=== PATIENT | male | born 1960 | race Hispanic/Latino ===

== ENCOUNTER 2020-09-28 13:00 | Inpatient (IN) | payer OTHER ==
[~2020-09-28] VITALS: Ht 167.6 cm; Wt 133.8 kg
[2020-09-28 11:56] LABS: BASOPHILS % (AUTO) 0.7 % (0.0-5.0); EOSINOPHILS % (AUTO) 3.6 % (0.0-8.0); MEAN CORPUSCULAR HEMOGLOBIN 28.2 pg (27.0-33.0); MEAN CORPUSCULAR HGB CONC 32.7 g/dL (32.0-36.0); MEAN CORPUSCULAR VOLUME 86.3 fL (79-99); MONOCYTES % (AUTO) 5.6 % (3.0-13.0); NEUTROPHILS % (AUTO) 64.8 % (40.0-77.0); PLATELET COUNT (AUTO) 286 K/uL (130-400); RED BLOOD CELL COUNT(AUTO) 4.75 MIL/uL (4.50-6.20); RED CELL DISTRIBUTION WIDTH 12.3 % (11.0-15.5); WHITE BLOOD COUNT (AUTO) 9.1 K/uL (4.8-10.8)
[2020-09-28 11:58] LABS: APPEARANCE,URINE Cloudy (CLEAR); BILIRUBIN,URINE Negative (NEGATIVE); COLOR,URINE Yellow (YELLOW); GLUCOSE, URINE (UA) Negative (NEGATIVE); KETONES,URINE Trace mg/dL (NEGATIVE); LEUKOCYTE ESTERASE ,URINE Negative (NEGATIVE); NITRATE,URINE Negative (NEGATIVE); OCCULT BLOOD,URINE Negative (NEGATIVE); PROTEIN,URINE POS 1+ mg/dL (NEGATIVE); UROBILINOGEN,URINE 0.2 mg/dL (0.2-1.0)
[2020-09-28 12:09] LABS: POTASSIUM 4.4 mmol/L (3.5-5.1)
[2020-09-28 12:11] LABS: INR 0.98 (0.85-1.15); PROTHROMBIN TIME 10.6 SEC (9.6-11.6)
[2020-09-28 12:37] LABS: BACTERIA,URINE Rare /HPF (None Seen); RBC,URINE 0-1 /HPF (0-1); WBC,URINE 0-1 /HPF (0-1)
[2020-10-04 11:03] VITALS: BP 133/73
[2020-10-04] MEDS ORDERED: AEC81 PO (13:20)
[2020-10-04] MEDS ORDERED: LISI10TA7 PO (13:20)
[2020-10-04] MEDS ORDERED: LIRA0.6P SQ (13:20)
[2020-10-04] MEDS ORDERED: ERGO50CA PO (13:20)
[2020-10-04] MEDS ORDERED: BUPR-93 PO (13:20)
[2020-10-04] MEDS ORDERED: MAGN200T8 PO (13:20)
[2020-10-04] MEDS ORDERED: INSU100V12 SQ (13:20)
[2020-10-04] MEDS ORDERED: MULT-1203 PO (13:20)
[2020-10-04] MEDS ORDERED: INSU100I21 SQ (13:20)
[2020-10-04] MEDS ORDERED: SERT50TA12 PO (13:20)
[2020-10-04] MEDS ORDERED: SIMV-46 PO (13:20)
[2020-10-04] MEDS ORDERED: TRAZ-185 PO (13:20)
[2020-10-04] MEDS ORDERED: ALBU1.252 IH (13:20)
[2020-10-05] VITALS (33 sets, daily range): BP systolic 110–161; BP diastolic 59–87
[2020-10-05] MEDS ORDERED: CEFAZOLIN 3GM /D5W 100ML 100 ML IV SCH (06:00)
[2020-10-05] MEDS ORDERED: CEFAZOLIN SODIUM 1 GM VIAL ONE ×2 (07:49→07:58)
[2020-10-05] MEDS ORDERED: SODIUM CHLORIDE 0.9% 1000ML 1,000 ML IV ONE (07:49)
[2020-10-05] MEDS ORDERED: TRANEXAMIC ACID 1000MG/10ML ONE ×2 (07:58→13:06)
[2020-10-05] MEDS ORDERED: MAGN400T53 PO (08:25)
[2020-10-05] MEDS ORDERED: VITAMIN D2 PO (08:25)
[2020-10-05] MEDS ORDERED: TRAZ-187 PO (08:25)
[2020-10-05] MEDS ORDERED: SERT100T12 PO (08:25)
[2020-10-05] MEDS ORDERED: SIMV40TA59 PO (08:25)
[2020-10-05] MEDS ORDERED: ALBU8.5H8 IH (08:25)
[2020-10-05] MEDS ORDERED: SYMBICORT IH (08:27)
[2020-10-05] MEDS ORDERED: MIDAZOLAM HCL 1 MG/ML 2ML VIAL ONE (09:19)
[2020-10-05] MEDS ORDERED: LIDOCAINE PF 2% 5ML ABBOJECT ONE (09:19)
[2020-10-05] MEDS ORDERED: PROPOFOL 10 MG/ML 20ML VIAL IV ONE (09:19)
[2020-10-05] MEDS ORDERED: ROCURONIUM 10MG/1ML SYR 10 MG/ML ML ONE (09:19)
[2020-10-05] MEDS ORDERED: SUCCINYLCHOLINE CHLORIDE 20 MG/ML 10 ML VIAL ONE (09:19)
[2020-10-05] MEDS ORDERED: KETAMINE 50MG/ML SYRINGE 50 MG/ML DISP.SYRIN IV ONE (09:22)
[2020-10-05] MEDS ORDERED: ACETAMINOPHEN EXTRA STRENGTH 500 MG TABLET ONE (09:29)
[2020-10-05] MEDS ORDERED: METOCLOPRAMIDE 10 MG/2 ML VIAL ONE (09:29)
[2020-10-05] MEDS ORDERED: KETOROLAC TROMETHAMINE 15MG/ML ONE (09:29)
[2020-10-05] MEDS ORDERED: CELECOXIB 200 MG CAP ONE (09:29)
[2020-10-05] MEDS ORDERED: GLYCOPYRROLATE 1 MG/5 ML SYRINGE ONE (09:46)
[2020-10-05] MEDS ORDERED: NEOSTIGMINE 5MG/5ML SYR IV ONE (09:47)
[2020-10-05] MEDS ORDERED: EPHEDRINE SULFATE 50 MG/ML AMPULE ONE (10:41)
[2020-10-05] MEDS ORDERED: CEFAZOLIN SODIUM 1 GM VIAL IRRIG ONE (10:50)
[2020-10-05] MEDS ORDERED: FENTANYL CITRATE PF 50 MCG/1 ML 2ML VIAL ONE (10:59)
[2020-10-05] MEDS ORDERED: ONDANSETRON HCL 4 MG/2 ML VIAL ONE (12:28)
[2020-10-05] MEDS ORDERED: CALCIUM CARBONATE 500 MG TABLET PO PRN (12:30)
[2020-10-05] MEDS ORDERED: TEMAZEPAM 15 MG CAPSULE PO PRN (12:30)
[2020-10-05] MEDS: ACETAMINOPHEN EXTRA STRENGTH 500 MG TABLET PO SCH ×2 (12:30→21:40)
[2020-10-05] MEDS: SODIUM CHLORIDE 0.9% 1000ML 1,000 ML IV SCH ×2 (12:30→22:30)
[2020-10-05] MEDS ORDERED: FERROUS FUMARATE 324 MG TABLET PO PRN (12:30)
[2020-10-05] MEDS ORDERED: DiphenhydrAMINE HCL 50 MG/ML VIAL IVP PRN (12:30)
[2020-10-05] MEDS ORDERED: ONDANSETRON HCL 4 MG/2 ML VIAL IVP PRN (12:30)
[2020-10-05] MEDS ORDERED: POTASSIUM CHLORIDE 10% ELIXIR 20 MEQ/15 ML UDCUP PO PRN (12:30)
[2020-10-05] MEDS ORDERED: POTASSIUM CHLORIDE 20MEQ/100ML 100 ML IV PRN (12:30)
[2020-10-05] MEDS ORDERED: POTASSIUM CHLORIDE 20 MEQ ERTAB PO PRN (12:30)
[2020-10-05] MEDS ORDERED: KETOROLAC TROMETHAMINE 15MG/ML IV PRN (12:30)
[2020-10-05] MEDS ORDERED: TRAMADOL HCL 50 MG TABLET PO PRN (12:30)
[2020-10-05] MEDS ORDERED: LIDOCAINE HCL-MPF 1% 2ML VIAL IV PRN (12:30)
[2020-10-05] MEDS: INSULIN HUMULIN R 100 UNIT/ML 3ML SQ SCH ×2 (16:30→21:36)
[2020-10-05] MEDS: CEFAZOLIN 3GM /D5W 100ML 100 ML IV SCH (18:16)
[2020-10-05] MEDS ORDERED: KETOROLAC TROMETHAMINE 30MG/ML ONE (20:03)
[2020-10-05] MEDS ORDERED: NON-FORMULARY MEDICATION 1 EACH (Simvastatin (Zocor) 20 MG) PO SCH (21:00)
[2020-10-05] MEDS: PREGABALIN 25 MG CAP PO SCH (21:39)
[2020-10-05] MEDS: CELECOXIB 200 MG CAP PO SCH (21:40)
[2020-10-05] MEDS: FAMOTIDINE 20MG TAB 20 MG TAB PO SCH (21:40)
[2020-10-05] MEDS: SIMVASTATIN 20 MG TABLET PO SCH (21:42)
[2020-10-05] MEDS: TRAZODONE HCL 100 MG TABLET PO SCH (21:43)
[2020-10-05] MEDS: LISINOPRIL 10 MG TABLET PO SCH (21:43)
[2020-10-05] MEDS: OXYCODONE HCL 5 MG TAB PO PRN (22:35)
[2020-10-06] MEDS: CEFAZOLIN 3GM /D5W 100ML 100 ML IV SCH (03:19)
[2020-10-06 03:52] LABS: HEMATOCRIT 30.7 % (42-54); MEAN CORPUSCULAR HEMOGLOBIN 27.8 pg (27.0-33.0); MEAN CORPUSCULAR HGB CONC 31.9 g/dL (32.0-36.0); RED BLOOD CELL COUNT(AUTO) 3.53 MIL/uL (4.50-6.20); RED CELL DISTRIBUTION WIDTH 12.5 % (11.0-15.5); WHITE BLOOD COUNT (AUTO) 8.2 K/uL (4.8-10.8)
[2020-10-06 03:53] VITALS: BP 124/55
[2020-10-06 04:01] LABS: POTASSIUM 4.3 mmol/L (3.5-5.1)
[2020-10-06] MEDS: ACETAMINOPHEN EXTRA STRENGTH 500 MG TABLET PO SCH ×3 (05:43→21:23)
[2020-10-06] MEDS: INSULIN HUMULIN R 100 UNIT/ML 3ML SQ SCH ×4 (06:54→21:28)
[2020-10-06 07:30] VITALS: BP 112/61
[2020-10-06] MEDS: FAMOTIDINE 20MG TAB 20 MG TAB PO SCH ×2 (08:20→21:21)
[2020-10-06] MEDS: APIXABAN 2.5 MG TABLET PO SCH ×2 (08:20→21:20)
[2020-10-06] MEDS: TAMSULOSIN HCL 0.4 MG CAP.ER.24H PO SCH (08:20)
[2020-10-06] MEDS: PREGABALIN 25 MG CAP PO SCH ×2 (08:20→21:23)
[2020-10-06] MEDS: MAGNESIUM OXIDE 400 MG TABLET PO SCH (08:20)
[2020-10-06] MEDS: CELECOXIB 200 MG CAP PO SCH ×2 (08:20→21:23)
[2020-10-06] MEDS: BUPROPION HCL 150 MG TABLET.SA PO SCH (08:20)
[2020-10-06] MEDS: OXYCODONE HCL 5 MG TAB PO PRN ×2 (08:21→21:22)
[2020-10-06] MEDS: SERTRALINE HCL 50 MG TABLET PO SCH (08:21)
[2020-10-06] MEDS: POLYETHYLENE GLYCOL 3350 17 GM POWD.PACK PO SCH (08:21)
[2020-10-06] MEDS: LISINOPRIL 10 MG TABLET PO SCH ×2 (08:29→21:21)
[2020-10-06] MEDS: MULTIVITAMIN TABLET PO SCH (08:29)
[2020-10-06] MEDS: SODIUM CHLORIDE 0.9% 1000ML 1,000 ML IV SCH (08:30)
[2020-10-06] MEDS ORDERED: NON-FORMULARY MEDICATION 1 EACH (Multivitamin (Multi Vitamin Daily) 1 EACH) PO SCH (09:00)
[2020-10-06] MEDS ORDERED: NON-FORMULARY MEDICATION 1 EACH (Sertraline HCl 200 MG) PO SCH (09:00)
[2020-10-06 11:00] VITALS: BP 114/53
[2020-10-06 19:30] VITALS: BP 126/53
[2020-10-06] MEDS: TRAZODONE HCL 100 MG TABLET PO SCH (21:23)
[2020-10-06] MEDS: SIMVASTATIN 20 MG TABLET PO SCH (21:23)
[2020-10-06 23:29] VITALS: BP 147/56
[2020-10-07 03:45] VITALS: BP 127/76
[2020-10-07] MEDS: OXYCODONE HCL 5 MG TAB PO PRN ×2 (04:45→08:42)
[2020-10-07] MEDS: ACETAMINOPHEN EXTRA STRENGTH 500 MG TABLET PO SCH ×2 (04:46→13:21)
[2020-10-07] MEDS: INSULIN HUMULIN R 100 UNIT/ML 3ML SQ SCH ×3 (06:59→17:53)
[2020-10-07] MEDS: PREGABALIN 25 MG CAP PO SCH (09:16)
[2020-10-07] MEDS: MULTIVITAMIN TABLET PO SCH (09:16)
[2020-10-07] MEDS: SERTRALINE HCL 50 MG TABLET PO SCH (09:17)
[2020-10-07] MEDS: BUPROPION HCL 150 MG TABLET.SA PO SCH (09:17)
[2020-10-07] MEDS: FAMOTIDINE 20MG TAB 20 MG TAB PO SCH (09:17)
[2020-10-07] MEDS: APIXABAN 2.5 MG TABLET PO SCH (09:17)
[2020-10-07] MEDS: MAGNESIUM OXIDE 400 MG TABLET PO SCH (09:18)
[2020-10-07] MEDS: CELECOXIB 200 MG CAP PO SCH (09:18)
[2020-10-07] MEDS: TAMSULOSIN HCL 0.4 MG CAP.ER.24H PO SCH (09:18)
[2020-10-07] MEDS: LISINOPRIL 10 MG TABLET PO SCH (09:18)
[2020-10-07] MEDS: POLYETHYLENE GLYCOL 3350 17 GM POWD.PACK PO SCH (09:18)
[2020-10-07 09:57] VITALS: BP 118/47
[2020-10-07 12:09] VITALS: BP 92/54
[2020-10-07] MEDS ORDERED: APIX2.5T PO (16:24)
[2020-10-07] MEDS ORDERED: HYDR-4457 PO (16:24)
[2020-10-07 16:55] VITALS: BP 123/72
[2020-10-08] MEDS ORDERED: BISACODYL 10 MG SUPP.RECT RC PRN (12:30)
[2020-10-12] MEDS ORDERED: ERGOCALCIFEROL (VITAMIN D2) 50,000 UNIT CAPSULE PO SCH (09:00)
[2020-10-12] MEDS ORDERED: VITAMIN D2 1.25 MG PO SCH (09:00)
== END 2020-10-07 19:35 | disposition home health service (06) | DRG 470 ==
LOC: EDSTATUS 13:00 → DAHIP 10-05 06:53 → 3BH 10-05 16:31
PROVIDERS: ADMIT Orthopaedic Surgery; ATTEND Orthopaedic Surgery
PROC: 3E0T33Z Introduction of Anti-inflammatory into Peripheral Nerves and Plexi, Percutaneous Approach (ICD-10-PCS; 2020-10-05)
PROC: 5A09357 Assistance with Respiratory Ventilation, Less than 24 Consecutive Hours, Continuous Positive Airway Pressure (ICD-10-PCS; 2020-10-05)
PROC: 0SRD0J9 Replacement of Left Knee Joint with Synthetic Substitute, Cemented, Open Approach (ICD-10-PCS; principal; 2020-10-05 09:45)
PROC: 3E0T3BZ Introduction of Anesthetic Agent into Peripheral Nerves and Plexi, Percutaneous Approach (ICD-10-PCS; 2020-10-05 09:45)
PROC: 5A09357 Assistance with Respiratory Ventilation, Less than 24 Consecutive Hours, Continuous Positive Airway Pressure (ICD-10-PCS; 2020-10-06)
PROC: 5A09357 Assistance with Respiratory Ventilation, Less than 24 Consecutive Hours, Continuous Positive Airway Pressure (ICD-10-PCS; 2020-10-07)
DX: M17.12 Unilateral primary osteoarthritis, left knee (principal); D64.9 Anemia, unspecified; Z20.828 Contact with and (suspected) exposure to other viral communicable diseases; J44.9 Chronic obstructive pulmonary disease, unspecified; E11.9 Type 2 diabetes mellitus without complications; E78.5 Hyperlipidemia, unspecified; I10 Essential (primary) hypertension; R26.89 Other abnormalities of gait and mobility; M23.8X2 Other internal derangements of left knee; Z99.89 Dependence on other enabling machines and devices; Z98.84 Bariatric surgery status; Z83.3 Family history of diabetes mellitus
CPT/HCPCS: 36415; 80048; 81001; 82948; 85025; 85027; 85610; 87641; 88305; 88311; 96374; 96375; 97039; G0378; J0330; J0690; J1815; J1885; J2001; J2250; J2405; J2704; J2710; J2765; J3010; J3490; J7030; J7120; U0003

== ENCOUNTER → 2022-02-07 | Outpatient (CLI) | payer OTHER ==
[~2022-02-07] MED LIST: ALBU8.5H8 IH; ALBUTEROL 0.083% 2.5 MG/3 ML INH IH ONE; APIX2.5T PO; BUPR-93 PO; HYDR-4457 PO; INSU100I21 SQ; INSU100V12 SQ; LIRA0.6P SQ; LISI10TA24 PO; MAGN400T53 PO; MULT-1203 PO; SERT-440 PO; SIMV40TA59 PO; SYMBICORT IH; TRAZ-187 PO; VITAMIN D2 PO
== END | disposition home or self-care (01) ==
LOC: RESP 09:52
PROVIDERS: ATTEND Internal Medicine
DX: J44.9 Chronic obstructive pulmonary disease, unspecified (principal)
CPT/HCPCS: 94060; 94727; 94729

== ENCOUNTER → 2022-05-17 | Outpatient (CLI) | payer OTHER ==
[~2022-05-17] MED LIST changes: -ALBUTEROL 0.083% 2.5 MG/3 ML INH IH ONE; +IOHEXOL 350 MG/ML 100ML INFUS..BTL IV ONE
== END | disposition home or self-care (01) ==
LOC: RAH 10:01
PROVIDERS: ATTEND Internal Medicine
DX: I51.7 Cardiomegaly (principal); N18.2 Chronic kidney disease, stage 2 (mild)
CPT/HCPCS: 71270; Q9967